=== PATIENT | female | born 1955 | race Caucasian/White ===

== ENCOUNTER 2018-02-20 12:29 | Day surgery (SDC) | payer MEDICARE, MEDICAID ==
[~2018-02-20] VITALS: Ht 170.2 cm; Wt 104.5 kg
[2018-02-20 12:40] VITALS: BP 141/96
[2018-02-20] MEDS ORDERED: fentaNYL/PF 50MCG/1 ML 2ML syringe ONE (12:41)
[2018-02-20] MEDS ORDERED: MIDAZolam 5mg/5ml vial ONE (12:41)
[2018-02-20] MEDS ORDERED: NAPR-1154 PO ×2 (12:54→13:02)
[2018-02-20] MEDS ORDERED: DIPH25CA83 PO (12:54)
[2018-02-20] MEDS ORDERED: SIMV20TA5 PO ×2 (12:54→13:02)
[2018-02-20] MEDS ORDERED: CHOL10002 PO (12:54)
[2018-02-20] MEDS ORDERED: CALC-1051 PO (12:54)
[2018-02-20] MEDS ORDERED: VITA150T PO (12:54)
[2018-02-20] MEDS ORDERED: VIT1TABL91 PO (13:02)
[2018-02-20] MEDS ORDERED: CYAN-19 PO (13:02)
[2018-02-20] MEDS ORDERED: DIPH-423 PO (13:02)
[2018-02-20] MEDS ORDERED: CALC-258 (13:02)
[2018-02-20 14:12] VITALS: BP 120/72
[2018-02-20 14:22] VITALS: BP 113/66
[2018-02-20 14:32] VITALS: BP 116/64
== END 2018-02-20 15:00 | disposition home or self-care (01) ==
LOC: GI LAB 12:29
PROVIDERS: ATTEND Internal Medicine Gastroenterology
DX: K57.30 Diverticulosis of large intestine without perforation or abscess without bleeding (principal); K64.8 Other hemorrhoids; Z79.899 Other long term (current) drug therapy; Z98.890 Other specified postprocedural states
CPT/HCPCS: 45378; 99153; G0500; J2250; J3010; J7030; A4620

== ENCOUNTER 2024-07-01 11:12 | Emergency (ER) | payer MEDICARE, MEDICAID ==
[~2024-07-01] VITALS: Ht 170.2 cm; Wt 90.5 kg
[~2024-07-01 11:12] MED LIST: CALC-258; CYAN-104 PO; DIPH-423 PO; NAPR-1154 PO; SIMV-42 PO; VIT1TABL91 PO
[2024-07-01 11:14] VITALS: TEMP 97.7
[2024-07-01 12:03] LABS: BASOPHILS # (AUTO) 0.1 X10'3 (0-0.2); BASOPHILS % (AUTO) 0.6 % (0-1); EOSINOPHILS # (AUTO) 0.2 X10'3 (0-0.9); EOSINOPHILS % (AUTO) 1.7 % (0-6); HEMOGLOBIN 14.5 g/dl (12.0-16.0); LYMPHOCYTES # (AUTO) 3.9 X10'3 (1.1-4.8); MEAN CORPUSCULAR HEMOGLOBIN 27.9 PG (27.0-31.0); MEAN CORPUSCULAR HGB CONC 32.9 g/dL (33.0-36.5); MEAN CORPUSCULAR VOLUME 84.8 FL (78-98); MEAN PLATELET VOLUME 8.1 FL (7.4-10.4); MONOCYTES # (AUTO) 0.5 X10'3 (0-0.9); MONOCYTES % (AUTO) 4.9 % (2-12); NEUTROPHILS # (AUTO) 5.2 X10'3 (1.8-7.7); NEUTROPHILS % (AUTO) 52.8 % (42-75); PLATELET COUNT 322 X10'3 (140-440); RED BLOOD COUNT 5.19 X10'6 (4.20-5.60); RED CELL DISTRIBUTION WIDTH 16.1 % (11.5-14.5); WHITE BLOOD COUNT 9.8 X10'3 (4.5-11.0)
[2024-07-01 12:09] LABS: ALANINE AMINOTRANSFERASE 25 U/L (12-78); ALBUMIN 3.7 G/DL (3.4-5.0); ALBUMIN/GLOBULIN RATIO 1.1 (1.1-1.5); ALKALINE PHOSPHATASE 101 IU/L (46-116); ANION GAP 6 (8-16); ASPARTATE AMINO TRANSFERASE 17 U/L (10-37); BILIRUBIN,TOTAL 0.4 MG/DL (0.1-1.0); BLOOD UREA NITROGEN 18 MG/DL (7-18); BUN/CREATININE RATIO 18.6 (10.0-20.0); CALCIUM 9.3 MG/DL (8.5-10.1); CHLORIDE 104 MMOL/L (99-107); CREATININE 0.97 MG/DL (0.40-0.90); GLUCOSE 99 MG/DL (70-104); LIPASE 27 U/L (16-77); POTASSIUM 3.6 MMOL/L (3.5-5.1); SODIUM 139 MMOL/L (135-145); TOTAL CARBON DIOXIDE 28.7 MMOL/L (24-32); eCRCL 53 ML/MIN; eGFR 57 ML/MIN
[2024-07-01 14:18] LABS: BILIRUBIN,URINE NEGATIVE (Neg); CLARITY,URINE CLEAR (Clear); GLUCOSE, URINE NEGATIVE (Neg); KETONES,URINE NEGATIVE (Neg); LEUKOCYTE ESTERASE ,URINE NEGATIVE (Neg); OCCULT BLOOD,URINE NEGATIVE (Neg); PROTEIN,URINE NEGATIVE (Neg); UROBILINOGEN,URINE 0.2 E.U/dL (0.2-1.0)
[2024-07-01 14:24] VITALS: BP 135/74; PULSE 64; RESP 16; O2SAT 97
[2024-07-01 14:28] LABS: COLOR,URINE STRAW (Yellow); NITRITES, URINE NEGATIVE (Neg)
[2024-07-01 14:29] LABS: UA COLLECTION TYPE STRAIGHT CATH
== END 2024-07-01 15:06 | disposition home or self-care (01) ==
LOC: ER 11:12
DX: F03.90 Unspecified dementia, unspecified severity, without behavioral disturbance, psychotic disturbance, mood disturbance, and anxiety (principal); Z88.0 Allergy status to penicillin; Z88.8 Allergy status to other drugs, medicaments and biological substances; Z79.1 Long term (current) use of non-steroidal anti-inflammatories (NSAID); Z79.899 Other long term (current) drug therapy
CPT/HCPCS: 36415; 80053; 81003; 83690; 85025; 99284; A4353